=== PATIENT | male | born 1990 | race Caucasian/White ===

== ENCOUNTER → 2017-10-16 | Emergency (ER) | payer MEDICAID ==
[~2017-10-16] VITALS: Ht 167.6 cm; Wt 65.0 kg
[~2017-10-16] MED LIST: AMO250L PO; AMOX400S76 PEG; DULR RC; IBUP-2284 PO; LEVE100S21 PO; MUPI22OI30 TP; RANI15SY GT; acetaminophen 650mg rectal suppository RC STA; flagyl PEG; normal saline 1000ML IV soln IV ONE
[2017-10-16 18:47] LABS: INR 1.1 INR; PARTIAL THROMBOPLASTIN TIME 28 SECONDS (22-32)
[2017-10-16 18:48] LABS: BASOPHILS % (AUTO) 0 % (0-1); EOSINOPHILS # (AUTO) 0.5 X10'3 (0-0.9); EOSINOPHILS % (AUTO) 7.2 % (0-6); HEMATOCRIT 44.4 % (42.0-52.0); HEMOGLOBIN 15.5 g/dl (14.0-17.9); LYMPHOCYTES # (AUTO) 0.2 X10'3 (1.1-4.8); LYMPHOCYTES % (AUTO) 2.8 % (21-51); MEAN CORPUSCULAR HEMOGLOBIN 33.4 PG (27.0-31.0); MEAN CORPUSCULAR VOLUME 95.3 FL (78-98); MEAN PLATELET VOLUME 9.6 FL (7.4-10.4); MONOCYTES # (AUTO) 0.5 X10'3 (0-0.9); NEUTROPHILS # (AUTO) 6.4 X10'3 (1.8-7.7); PLATELET COUNT 181 X10'3 (140-440); RED BLOOD COUNT 4.65 X10'6 (4.70-6.10); RED CELL DISTRIBUTION WIDTH 12.8 % (11.5-14.5); WHITE BLOOD COUNT 7.6 X10'3 (4.5-11.0)
[2017-10-16 18:56] LABS: ALANINE AMINOTRANSFERASE 60 U/L (12-78); ALBUMIN 4.1 G/DL (3.4-5.0); ALBUMIN/GLOBULIN RATIO 1.1 (1.1-1.5); ALKALINE PHOSPHATASE 140 IU/L (46-116); ANION GAP 12 (8-16); ASPARTATE AMINO TRANSFERASE 40 U/L (10-37); BILIRUBIN,TOTAL 0.6 MG/DL (0.1-1.0); BLOOD UREA NITROGEN 15 MG/DL (7-18); BUN/CREATININE RATIO 25.4 (5.4-32.0); CALCIUM 9.2 MG/DL (8.5-10.1); CHLORIDE 105 MMOL/L (99-107); CREATININE 0.59 MG/DL (0.60-1.10); GLUCOSE 82 MG/DL (70-104); SODIUM 141 MMOL/L (135-145); TOTAL CARBON DIOXIDE 24.2 MMOL/L (24-32); TOTAL PROTEIN 7.8 G/DL (6.4-8.2); eGFR > 90 ML/MIN
[2017-10-16 21:47] VITALS: BP 113/69
== END | disposition home or self-care (01) ==
LOC: ER 17:39
DX: R50.9 Fever, unspecified (principal); Z93.1 Gastrostomy status; Z98.890 Other specified postprocedural states; Z79.899 Other long term (current) drug therapy; Z88.1 Allergy status to other antibiotic agents
CPT/HCPCS: 36415; 71045; 80053; 83605; 84145; 85025; 85610; 85730; 87040; 87502; 87503; 96360; 96361; 99285; A4353; J7030

== ENCOUNTER 2018-02-12 10:52 | Emergency (ER) | payer MEDICAID ==
[~2018-02-12] VITALS: Ht 160 cm; Wt 27.0 kg
[~2018-02-12 10:52] MED LIST changes: -AMO250L PO; -IBUP-2284 PO; +IBUP100O20 PO; -acetaminophen 650mg rectal suppository RC STA; -normal saline 1000ML IV soln IV ONE
[2018-02-12] MEDS ORDERED: normal saline 1000ML IV soln IVB ONE (11:15)
[2018-02-12] MEDS ORDERED: NORMAL SALINE IV STA (11:17)
[2018-02-12] MEDS ORDERED: LEVETIRACETAM IV STA (11:17)
[2018-02-12 11:22] LABS: BASOPHILS % (AUTO) 0.1 % (0-1); EOSINOPHILS # (AUTO) 0.4 X10'3 (0-0.9); EOSINOPHILS % (AUTO) 2.1 % (0-6); HEMATOCRIT 43.3 % (42.0-52.0); HEMOGLOBIN 14.7 g/dl (14.0-17.9); LYMPHOCYTES # (AUTO) 0.7 X10'3 (1.1-4.8); LYMPHOCYTES % (AUTO) 4.3 % (21-51); MEAN CORPUSCULAR HGB CONC 34.1 % (33.0-36.5); MEAN CORPUSCULAR VOLUME 96.8 FL (78-98); MEAN PLATELET VOLUME 9.6 FL (7.4-10.4); MONOCYTES # (AUTO) 0.8 X10'3 (0-0.9); MONOCYTES % (AUTO) 4.8 % (2-12); NEUTROPHILS # (AUTO) 15.1 X10'3 (1.8-7.7); NEUTROPHILS % (AUTO) 88.7 % (42-75); PLATELET COUNT 233 X10'3 (140-440); RED BLOOD COUNT 4.47 X10'6 (4.70-6.10); RED CELL DISTRIBUTION WIDTH 12.7 % (11.5-14.5); WHITE BLOOD COUNT 17.1 X10'3 (4.5-11.0)
[2018-02-12 11:33] LABS: INR 1.1 INR; PARTIAL THROMBOPLASTIN TIME 28 SECONDS (22-32); PROTHROMBIN TIME 11.3 SECONDS (9.0-12.0)
[2018-02-12 11:38] LABS: ALANINE AMINOTRANSFERASE 47 U/L (12-78); ALBUMIN/GLOBULIN RATIO 1.1 (1.1-1.5); ALKALINE PHOSPHATASE 144 IU/L (46-116); ANION GAP 19 (8-16); ASPARTATE AMINO TRANSFERASE 42 U/L (10-37); BILIRUBIN,TOTAL 0.4 MG/DL (0.1-1.0); BLOOD UREA NITROGEN 14 MG/DL (7-18); BUN/CREATININE RATIO 17.5 (5.4-32.0); CALCIUM 9.4 MG/DL (8.5-10.1); CHLORIDE 105 MMOL/L (99-107); GLUCOSE 158 MG/DL (70-104); MAGNESIUM 2.2 MG/DL (1.5-2.4); SODIUM 143 MMOL/L (135-145); TOTAL PROTEIN 7.8 G/DL (6.4-8.2); eGFR > 90 ML/MIN
[2018-02-12 11:40] LABS: POTASSIUM 4.1 MMOL/L (3.5-5.1)
[2018-02-12 12:17] LABS: CLARITY,URINE SLIGHTLY CLOUDY (Clear); COLOR,URINE YELLOW (Yellow); GLUCOSE, URINE NEGATIVE (Neg); KETONES,URINE NEGATIVE (Neg); LEUKOCYTE ESTERASE ,URINE NEGATIVE (Neg); NITRITES, URINE NEGATIVE (Neg); OCCULT BLOOD,URINE NEGATIVE (Neg); PH,URINE 5.5 (4.8-8.0); PROTEIN,URINE TRACE mg/dl (Neg); UA COLLECTION TYPE STRAIGHT CATH; UROBILINOGEN,URINE 0.2 E.U/dL (0.2-1.0)
[2018-02-12 12:24] LABS: MUCUS STRANDS MODERATE /LPF (Neg); SQUAMOUS EPITHELIAL CELL,UR MODERATE /LPF (FEW)
[2018-02-12 12:25] LABS: RBC,URINE 0-2 /HPF (0-2); WBC,URINE 0-4 /HPF (0-4)
[2018-02-12 12:26] LABS: AMORPHOUS URATES 2+; BACTERIA,URINE 1+ /HPF (Neg)
[2018-02-12] MEDS ORDERED: LEVO250T2 PO (12:50)
[2018-02-12] MEDS ORDERED: levoFLOXACIN-Levaquin 250mg/D5 50 ML IV ONE (12:50)
[2018-02-12] MEDS ORDERED: LEVO250S7 PEG (12:51)
[2018-02-12] MEDS ORDERED: ondansetron/PF 4mg/2ml inj IV ONE (13:25)
[2018-02-12 14:13] VITALS: BP 113/57
[2018-02-12] MEDS ORDERED: acetaminophen 325mg/10.15ml oral unit dose solution PO ONE (14:15)
== END 2018-02-12 14:30 | disposition home or self-care (01) ==
LOC: ER 10:52
DX: J18.9 Pneumonia, unspecified organism (principal); R56.9 Unspecified convulsions; R79.1 Abnormal coagulation profile; Z88.1 Allergy status to other antibiotic agents; Z79.899 Other long term (current) drug therapy
CPT/HCPCS: 36415; 70450; 71045; 80053; 81001; 83735; 84145; 85025; 85610; 85730; 96365; 96368; 96375; 99285; A4353; J1953; J1956; J2405; J7030

== ENCOUNTER 2018-07-13 06:26 | Inpatient (IN) | payer MEDICAID ==
[2018-07-13] VITALS (7 sets, daily range): BP systolic 103–157; BP diastolic 51–80
[~2018-07-13] VITALS: Ht 162.6 cm; Wt 29.6 kg
[~2018-07-13 06:26] MED LIST changes: +LEVO250S7 PEG
[2018-07-13] MEDS ORDERED: pantoprazole 40MG/NS 100ML BAG 100 ML IV ONE (06:50)
[2018-07-13] MEDS ORDERED: normal saline 1000ML IV soln IVB ONE (06:50)
[2018-07-13 07:37] LABS: BASOPHILS % (AUTO) 0.2 % (0-1); EOSINOPHILS % (AUTO) 0.2 % (0-6); HEMATOCRIT 42.8 % (42.0-52.0); HEMOGLOBIN 14.6 g/dl (14.0-17.9); LYMPHOCYTES # (AUTO) 0.7 X10'3 (1.1-4.8); LYMPHOCYTES % (AUTO) 5.6 % (21-51); MEAN CORPUSCULAR HEMOGLOBIN 32.9 PG (27.0-31.0); MEAN CORPUSCULAR HGB CONC 34.1 % (33.0-36.5); MEAN CORPUSCULAR VOLUME 96.5 FL (78-98); MEAN PLATELET VOLUME 9.8 FL (7.4-10.4); MONOCYTES # (AUTO) 0.4 X10'3 (0-0.9); MONOCYTES % (AUTO) 3.3 % (2-12); NEUTROPHILS # (AUTO) 11.8 X10'3 (1.8-7.7); NEUTROPHILS % (AUTO) 90.7 % (42-75); PLATELET COUNT 267 X10'3 (140-440); RED BLOOD COUNT 4.43 X10'6 (4.70-6.10); RED CELL DISTRIBUTION WIDTH 12.6 % (11.5-14.5)
[2018-07-13 07:53] LABS: ALANINE AMINOTRANSFERASE 28 U/L (12-78); ALBUMIN 3.8 G/DL (3.4-5.0); ALKALINE PHOSPHATASE 119 IU/L (46-116); ANION GAP 9 (8-16); ASPARTATE AMINO TRANSFERASE 25 U/L (10-37); BILIRUBIN,TOTAL 0.5 MG/DL (0.1-1.0); BLOOD UREA NITROGEN 28 MG/DL (7-18); BUN/CREATININE RATIO 57.1 (5.4-32.0); CHLORIDE 103 MMOL/L (99-107); CREATININE 0.49 MG/DL (0.60-1.10); GLUCOSE 99 MG/DL (70-104); POTASSIUM 4.5 MMOL/L (3.5-5.1); SODIUM 138 MMOL/L (135-145); TOTAL CARBON DIOXIDE 25.6 MMOL/L (24-32); TOTAL PROTEIN 7.7 G/DL (6.4-8.2); eGFR > 90 ML/MIN
[2018-07-13 07:56] LABS: INR 1.1 INR
[2018-07-13 08:23] LABS: CLARITY,URINE CLEAR (Clear); COLOR,URINE YELLOW (Yellow); GLUCOSE, URINE NEGATIVE (Neg); KETONES,URINE 15 mg/dl (Neg); LEUKOCYTE ESTERASE ,URINE NEGATIVE (Neg); NITRITES, URINE NEGATIVE (Neg); OCCULT BLOOD,URINE NEGATIVE (Neg); PH,URINE 7.5 (4.8-8.0); PROTEIN,URINE NEGATIVE (Neg); UROBILINOGEN,URINE 0.2 E.U/dL (0.2-1.0)
[2018-07-13 08:28] LABS: UA COLLECTION TYPE STRAIGHT CATH
[2018-07-13 08:30] LABS: OCCULT BLOOD STOOL POSITIVE (Neg)
[2018-07-13] MEDS ORDERED: LEVE100S21 CORPAK (08:56)
[2018-07-13] MEDS ORDERED: magnesium Cl slow-release 64mg tablet PO PRN (09:35)
[2018-07-13] MEDS ORDERED: acetaminophen 650mg rectal suppository RC PRN (09:35)
[2018-07-13] MEDS ORDERED: potassium Cl 20 mEq SR tablet PO PRN ×2 (09:35)
[2018-07-13] MEDS ORDERED: magnesium 1gm/100ml D5W IVPB 100 ML IV PRN (09:35)
[2018-07-13] MEDS ORDERED: morphine 2 MG/ML inj. syringe IV PRN ×2 (09:35)
[2018-07-13] MEDS ORDERED: magnesium hydroxide 30ml (MOM) UD suspension PO PRN (09:35)
[2018-07-13] MEDS ORDERED: magnesium 4gm in 100ml NS 100 ML IV PRN (09:35)
[2018-07-13] MEDS ORDERED: mag hydrox/Alum hydrox/simeth 30ml oral suspension PO PRN (09:35)
[2018-07-13] MEDS ORDERED: potassium Cl 40MEQ/NS 500ml 500 ML IV PRN ×2 (09:35)
[2018-07-13] MEDS ORDERED: ondansetron/PF 4mg/2ml inj IV PRN (09:35)
[2018-07-13] MEDS: dextrose 5%-1/2 normal saline 1,000 ML IV SCH ×2 (10:16→20:27)
[2018-07-13] MEDS: levetiracetam 100mg/ml oral solution 5ml UD cup GT SCH ×2 (10:18→21:00)
[2018-07-13] MEDS: pantoprazole 40MG/NS 100ML BAG 100 ML IV SCH ×3 (11:00→22:17)
[2018-07-13] MEDS ORDERED: MIDAZolam 5mg/5ml vial ONE (11:22)
[2018-07-13] MEDS ORDERED: fentaNYL/PF 50MCG/1 ML 2ML syringe ONE (11:22)
[2018-07-13] MEDS ORDERED: LIDOcaine Viscous 15ml cup ONE (11:22)
[2018-07-13 13:57] LABS: BASOPHILS % (AUTO) 0.2 % (0-1); EOSINOPHILS # (AUTO) 0.1 X10'3 (0-0.9); EOSINOPHILS % (AUTO) 1.3 % (0-6); HEMATOCRIT 34.8 % (42.0-52.0); HEMOGLOBIN 11.8 g/dl (14.0-17.9); LYMPHOCYTES % (AUTO) 20.1 % (21-51); MEAN CORPUSCULAR HEMOGLOBIN 32.9 PG (27.0-31.0); MEAN CORPUSCULAR HGB CONC 33.9 % (33.0-36.5); MEAN CORPUSCULAR VOLUME 97.2 FL (78-98); MEAN PLATELET VOLUME 9.2 FL (7.4-10.4); MONOCYTES # (AUTO) 0.6 X10'3 (0-0.9); MONOCYTES % (AUTO) 6.4 % (2-12); NEUTROPHILS # (AUTO) 7.3 X10'3 (1.8-7.7); PLATELET COUNT 229 X10'3 (140-440); RED BLOOD COUNT 3.58 X10'6 (4.70-6.10); RED CELL DISTRIBUTION WIDTH 12.8 % (11.5-14.5); WHITE BLOOD COUNT 10.1 X10'3 (4.5-11.0)
[2018-07-13 19:19] LABS: BASOPHILS % (AUTO) 0.4 % (0-1); EOSINOPHILS # (AUTO) 0.2 X10'3 (0-0.9); EOSINOPHILS % (AUTO) 1.7 % (0-6); HEMATOCRIT 31.8 % (42.0-52.0); HEMOGLOBIN 10.8 g/dl (14.0-17.9); LYMPHOCYTES # (AUTO) 2.2 X10'3 (1.1-4.8); LYMPHOCYTES % (AUTO) 25.5 % (21-51); MEAN CORPUSCULAR HGB CONC 33.8 % (33.0-36.5); MEAN CORPUSCULAR VOLUME 97.7 FL (78-98); MEAN PLATELET VOLUME 9.3 FL (7.4-10.4); MONOCYTES # (AUTO) 0.6 X10'3 (0-0.9); MONOCYTES % (AUTO) 6.8 % (2-12); NEUTROPHILS # (AUTO) 5.8 X10'3 (1.8-7.7); NEUTROPHILS % (AUTO) 65.6 % (42-75); PLATELET COUNT 200 X10'3 (140-440); RED BLOOD COUNT 3.25 X10'6 (4.70-6.10); RED CELL DISTRIBUTION WIDTH 12.4 % (11.5-14.5); WHITE BLOOD COUNT 8.8 X10'3 (4.5-11.0)
[2018-07-13] MEDS ORDERED: levetiracetam 100mg/ml oral solution 5ml UD cup GT SCH (20:00)
[2018-07-14] VITALS: BP 88/40
[2018-07-14] MEDS: pantoprazole 40MG/NS 100ML BAG 100 ML IV SCH ×3 (03:16→11:00)
[2018-07-14] MEDS: dextrose 5%-1/2 normal saline 1,000 ML IV SCH (06:44)
[2018-07-14 07:33] VITALS: BP 96/49
[2018-07-14 07:55] LABS: BASOPHILS % (AUTO) 0.3 % (0-1); EOSINOPHILS # (AUTO) 0.3 X10'3 (0-0.9); EOSINOPHILS % (AUTO) 4.8 % (0-6); HEMATOCRIT 34.8 % (42.0-52.0); HEMOGLOBIN 11.7 g/dl (14.0-17.9); MEAN CORPUSCULAR HEMOGLOBIN 32.8 PG (27.0-31.0); MEAN CORPUSCULAR HGB CONC 33.6 % (33.0-36.5); MEAN CORPUSCULAR VOLUME 97.8 FL (78-98); MEAN PLATELET VOLUME 10.1 FL (7.4-10.4); MONOCYTES # (AUTO) 0.4 X10'3 (0-0.9); MONOCYTES % (AUTO) 6.3 % (2-12); NEUTROPHILS # (AUTO) 3.8 X10'3 (1.8-7.7); NEUTROPHILS % (AUTO) 57.6 % (42-75); PLATELET COUNT 183 X10'3 (140-440); RED BLOOD COUNT 3.56 X10'6 (4.70-6.10); WHITE BLOOD COUNT 6.6 X10'3 (4.5-11.0)
[2018-07-14] MEDS ORDERED: K and/or MAG REPLACEMENT MC SCH (08:00)
[2018-07-14] MEDS: levetiracetam 100mg/ml oral solution 5ml UD cup GT SCH (08:15)
[2018-07-14 08:18] LABS: ANION GAP 6 (8-16); BLOOD UREA NITROGEN 6 MG/DL (7-18); BUN/CREATININE RATIO 14.6 (5.4-32.0); CALCIUM 8.8 MG/DL (8.5-10.1); CHLORIDE 110 MMOL/L (99-107); CREATININE 0.41 MG/DL (0.60-1.10); GLUCOSE 78 MG/DL (70-104); POTASSIUM 3.6 MMOL/L (3.5-5.1); PREALBUMIN 18.3 MG/DL (19-36); SODIUM 142 MMOL/L (135-145); TOTAL CARBON DIOXIDE 25.8 MMOL/L (24-32); eGFR > 90 ML/MIN
[2018-07-14] MEDS ORDERED: iohexol 300 MG/1 ML 50ml polymer ONE (10:41)
[2018-07-14] MEDS ORDERED: LIDOcaine 1% (10mg/ml) 2ml vial ONE (10:41)
[2018-07-14] MEDS ORDERED: LIDOcaine 1%/PF 5ML 10 MG/ML VIAL SQ ONE (10:45)
[2018-07-14 11:00] VITALS: BP 97/51
[2018-07-14] MEDS ORDERED: SUCR1ORA PO (12:49)
== END 2018-07-14 14:35 | disposition home or self-care (01) | DRG 241 ==
LOC: ER 06:26 → ED HOLD 08:36 → SUR 3N 13:36
PROVIDERS: ADMIT Internal Medicine; ATTEND Internal Medicine
PROC: 0DJ08ZZ Inspection of Upper Intestinal Tract, Via Natural or Artificial Opening Endoscopic (ICD-10-PCS; principal; 2018-07-13)
PROC: 0D20XUZ Change Feeding Device in Upper Intestinal Tract, External Approach (ICD-10-PCS; 2018-07-14)
DX: K29.01 Acute gastritis with bleeding (principal); D72.828 Other elevated white blood cell count; G40.909 Epilepsy, unspecified, not intractable, without status epilepticus; G80.9 Cerebral palsy, unspecified; K31.89 Other diseases of stomach and duodenum; K92.0 Hematemesis; Z74.01 Bed confinement status; Z88.1 Allergy status to other antibiotic agents; Z79.899 Other long term (current) drug therapy
CPT/HCPCS: 36415; 49450; 71045; 80048; 80053; 81003; 82272; 83735; 84134; 85025; 85610; 86885; 86900; 86901; 87070; 96361; 96374; 99152; 99285; A4310; A4620; B4088; C9113; G0378; J2250; J3010; J3490; J7030; Q9967

== ENCOUNTER 2018-09-19 10:32 | Emergency (ER) | payer MEDICAID ==
[~2018-09-19] VITALS: Ht 157.5 cm; Wt 55.0 kg
[~2018-09-19 10:32] MED LIST changes: -AMOX400S76 PEG; -IBUP100O20 PO; +LEVE100S21 CORPAK; -LEVE100S21 PO; -LEVO250S7 PEG; -MUPI22OI30 TP; +SUCR1ORA PO; -flagyl PEG
--- NOTE | 2018-09-19 10:56 | NUR ---
PATIENT TO RADIOLOGY,GRANDPARENT IN THE ROOM.
[2018-09-19] MEDS ORDERED: normal saline 1000ML IV soln IV ONE (11:25)
[2018-09-19] MEDS ORDERED: levoFLOXACIN-Levaquin 500mg/D5 100 ML IV ONE (11:25)
[2018-09-19 11:28] LABS: BASOPHILS # (AUTO) 0.1 X10'3 (0-0.2); BASOPHILS % (AUTO) 1.9 % (0-1); EOSINOPHILS # (AUTO) 0.2 X10'3 (0-0.9); EOSINOPHILS % (AUTO) 2.3 % (0-6); HEMATOCRIT 42.8 % (42.0-52.0); LYMPHOCYTES # (AUTO) 0.1 X10'3 (1.1-4.8); LYMPHOCYTES % (AUTO) 1.5 % (21-51); MEAN CORPUSCULAR HEMOGLOBIN 30.1 PG (27.0-31.0); MEAN CORPUSCULAR HGB CONC 32.7 % (33.0-36.5); MEAN CORPUSCULAR VOLUME 92.2 FL (78-98); MEAN PLATELET VOLUME 9.9 FL (7.4-10.4); MONOCYTES # (AUTO) 0.5 X10'3 (0-0.9); MONOCYTES % (AUTO) 7.1 % (2-12); NEUTROPHILS # (AUTO) 6.2 X10'3 (1.8-7.7); NEUTROPHILS % (AUTO) 87.2 % (42-75); PLATELET COUNT 217 X10'3 (140-440); RED BLOOD COUNT 4.64 X10'6 (4.70-6.10); RED CELL DISTRIBUTION WIDTH 13.3 % (11.5-14.5); WHITE BLOOD COUNT 7.1 X10'3 (4.5-11.0)
[2018-09-19 13:22] LABS: ALANINE AMINOTRANSFERASE 20 U/L (12-78); ALBUMIN 3.3 G/DL (3.4-5.0); ALBUMIN/GLOBULIN RATIO 0.9 (1.1-1.5); ALKALINE PHOSPHATASE 109 IU/L (46-116); ANION GAP 12 (8-16); ASPARTATE AMINO TRANSFERASE 28 U/L (10-37); BILIRUBIN,TOTAL 0.4 MG/DL (0.1-1.0); BLOOD UREA NITROGEN 11 MG/DL (7-18); BUN/CREATININE RATIO 19.6 (5.4-32.0); CALCIUM 8.4 MG/DL (8.5-10.1); CHLORIDE 106 MMOL/L (99-107); CREATININE 0.56 MG/DL (0.60-1.10); GLUCOSE 79 MG/DL (70-104); POTASSIUM 4.3 MMOL/L (3.5-5.1); SODIUM 140 MMOL/L (135-145); TOTAL CARBON DIOXIDE 21.7 MMOL/L (24-32); TOTAL PROTEIN 6.9 G/DL (6.4-8.2); eGFR > 90 ML/MIN
[2018-09-19 13:47] LABS: CLARITY,URINE SLIGHTLY CLOUDY (Clear); COLOR,URINE YELLOW (Yellow); GLUCOSE, URINE NEGATIVE (Neg); KETONES,URINE 15 mg/dl (Neg); LEUKOCYTE ESTERASE ,URINE NEGATIVE (Neg); NITRITES, URINE NEGATIVE (Neg); OCCULT BLOOD,URINE NEGATIVE (Neg); PH,URINE 6.5 (4.8-8.0); PROTEIN,URINE TRACE mg/dl (Neg); UROBILINOGEN,URINE 0.2 E.U/dL (0.2-1.0)
[2018-09-19 13:52] LABS: UA COLLECTION TYPE STRAIGHT CATH
[2018-09-19 13:57] LABS: BACTERIA,URINE FEW /HPF (Neg); HYALINE CASTS 0-3 /LPF (NEGATIVE); MUCUS STRANDS MODERATE /LPF (Neg); RBC,URINE 0-2 /HPF (0-2); SQUAMOUS EPITHELIAL CELL,UR FEW /LPF (FEW); TRANSITIONAL EPI CELLS,URINE FEW /HPF; WBC,URINE 0-4 /HPF (0-4)
[2018-09-19] MEDS ORDERED: ondansetron/PF 4mg/2ml inj IV ONE (14:15)
[2018-09-19 15:09] VITALS: BP 134/76
--- NOTE | 2018-09-19 17:21 | NUR ---
LAB CALLED WITH A POSTIVE FLU A. PROVIDER NOTIFIED
--- NOTE | 2018-09-19 17:50 | NUR ---
FAMILY CALLED AND NOTIFIED THAT PT WAS POSITIVE FOR FLU A. PT'S GRANDMOTHER INFORMED THAT [facility] WAS CALLED INTO HER PHARMACY AND THAT THEY NEED TO MAKE SURE THAT PT RECEIVES ALL MEDICATION AND TAKES THEM ORDERED AND TO F/U WITH DR QUIGLEY ON FRIDAY IF POSSIBLE. ADVISED TO RETURN TO ER SHOULD PT'S SYMPTOMS WORSEN BEFORE SEEING PMD.
== END 2018-09-19 15:44 | disposition home or self-care (01) ==
LOC: ER 10:32
DX: J20.9 Acute bronchitis, unspecified (principal); G80.8 Other cerebral palsy; Z98.890 Other specified postprocedural states; Z88.1 Allergy status to other antibiotic agents; Z79.899 Other long term (current) drug therapy; Z87.01 Personal history of pneumonia (recurrent)
CPT/HCPCS: 36415; 71046; 80053; 81001; 84145; 85025; 87040; 87502; 87503; 96365; 96375; 99284; J1956; J2405; J7030

== ENCOUNTER 2018-10-02 12:54 | Inpatient (IN) | payer MEDICAID ==
[~2018-10-02] VITALS: Ht 121.9 cm; Wt 45.5 kg
[2018-10-02] MEDS ORDERED: normal saline 1000ML IV soln IV ONE (13:10)
[2018-10-02 13:55] LABS: BASOPHILS % (AUTO) 0 % (0-1); EOSINOPHILS # (AUTO) 0.2 X10'3 (0-0.9); EOSINOPHILS % (AUTO) 1.6 % (0-6); HEMATOCRIT 38.5 % (42.0-52.0); HEMOGLOBIN 12.9 g/dl (14.0-17.9); LYMPHOCYTES # (AUTO) 0.5 X10'3 (1.1-4.8); LYMPHOCYTES % (AUTO) 3.8 % (21-51); MEAN CORPUSCULAR HEMOGLOBIN 30.9 PG (27.0-31.0); MEAN CORPUSCULAR HGB CONC 33.6 % (33.0-36.5); MEAN CORPUSCULAR VOLUME 91.8 FL (78-98); MEAN PLATELET VOLUME 9.2 FL (7.4-10.4); MONOCYTES # (AUTO) 0.5 X10'3 (0-0.9); MONOCYTES % (AUTO) 3.7 % (2-12); NEUTROPHILS # (AUTO) 12.5 X10'3 (1.8-7.7); NEUTROPHILS % (AUTO) 90.9 % (42-75); PLATELET COUNT 399 X10'3 (140-440); RED BLOOD COUNT 4.19 X10'6 (4.70-6.10); WHITE BLOOD COUNT 13.8 X10'3 (4.5-11.0)
[2018-10-02 14:12] LABS: INR 1.1 INR; PARTIAL THROMBOPLASTIN TIME 27 SECONDS (22-32); PROTHROMBIN TIME 11.4 SECONDS (9.0-12.0)
[2018-10-02 14:14] LABS: ALANINE AMINOTRANSFERASE 34 U/L (12-78); ALBUMIN 3.7 G/DL (3.4-5.0); ALKALINE PHOSPHATASE 107 IU/L (46-116); ANION GAP 14 (8-16); ASPARTATE AMINO TRANSFERASE 26 U/L (10-37); BILIRUBIN,TOTAL 0.4 MG/DL (0.1-1.0); BLOOD UREA NITROGEN 16 MG/DL (7-18); BUN/CREATININE RATIO 21.1 (5.4-32.0); CALCIUM 8.7 MG/DL (8.5-10.1); CHLORIDE 107 MMOL/L (99-107); CREATININE 0.76 MG/DL (0.60-1.10); GLUCOSE 118 MG/DL (70-104); MAGNESIUM 2.1 MG/DL (1.5-2.4); POTASSIUM 4.2 MMOL/L (3.5-5.1); SODIUM 143 MMOL/L (135-145); TOTAL CARBON DIOXIDE 21.7 MMOL/L (24-32); TOTAL PROTEIN 7.5 G/DL (6.4-8.2); eGFR > 90 ML/MIN
[2018-10-02 14:22] LABS: CLARITY,URINE SLIGHTLY CLOUDY (Clear); COLOR,URINE YELLOW (Yellow); GLUCOSE, URINE NEGATIVE (Neg); KETONES,URINE NEGATIVE (Neg); LEUKOCYTE ESTERASE ,URINE NEGATIVE (Neg); NITRITES, URINE NEGATIVE (Neg); OCCULT BLOOD,URINE TRACE-INTACT (Neg); PH,URINE 6.5 (4.8-8.0); PROTEIN,URINE 30 mg/dl (Neg); UROBILINOGEN,URINE 0.2 E.U/dL (0.2-1.0)
[2018-10-02 14:23] LABS: UA COLLECTION TYPE STRAIGHT CATH
[2018-10-02 14:42] LABS: MUCUS STRANDS MODERATE /LPF (Neg); SQUAMOUS EPITHELIAL CELL,UR FEW /LPF (FEW)
[2018-10-02 14:44] LABS: RBC,URINE 0-2 /HPF (0-2); TRANSITIONAL EPI CELLS,URINE FEW /HPF; WBC,URINE 0-4 /HPF (0-4)
[2018-10-02 14:45] LABS: BACTERIA,URINE FEW /HPF (Neg)
[2018-10-02] MEDS ORDERED: ondansetron/PF 4mg/2ml inj IV ONE (16:00)
--- NOTE | 2018-10-02 16:18 | NUR ---
ASSISTING RN WITH PT CARE, PT IS RESTING QUIETLY ON GURNEY, RESP EVEN AND UNLABORED, SKIN P/W/D, PER FAMILY PT IS BACK TO NORMAL MENTAL STATE, NONVERBAL,
[2018-10-02] MEDS ORDERED: normal saline 1000ML IV soln IVB ONE (16:20)
--- NOTE | 2018-10-02 16:23 | NUR ---
2ND LITER NS INFUSING
[2018-10-02] MEDS: ampicill/sulbac 1.5gm/NS 100ml 100 ML IV SCH (17:11)
[2018-10-02] MEDS ORDERED: fentaNYL/PF 50MCG/1 ML 2ML syringe IV ONE (17:25)
[2018-10-02] MEDS: normal saline 1000ml 1,000 ML IV SCH (17:41)
[2018-10-02] MEDS ORDERED: potassium Cl 20 mEq SR tablet PO PRN ×2 (17:45)
[2018-10-02] MEDS ORDERED: magnesium 2GM in 50ml NS 50 ML IV PRN (17:45)
[2018-10-02] MEDS ORDERED: potassium Cl 40MEQ/NS 500ml 500 ML IV PRN ×2 (17:45)
[2018-10-02] MEDS ORDERED: magnesium 4gm in 100ml NS 100 ML IV PRN (17:45)
[2018-10-02] MEDS ORDERED: bisacodyl 10mg suppository rectal RC PRN (17:45)
[2018-10-02] MEDS ORDERED: acetaminophen 650mg rectal suppository RC PRN (17:45)
[2018-10-02] MEDS ORDERED: magnesium Cl slow-release 64mg tablet PO PRN (17:45)
[2018-10-02] MEDS: heparin, porcine 5000 units/ml vial SQ SCH (20:00)
[2018-10-02 20:30] VITALS: BP 124/72
--- NOTE | 2018-10-02 20:30 | NUR ---
pt arrived to floor via gurney and was transferred to bed. VSS, pt and family oriented to room and call light. Addendum: 10/03/18 at 0523 by Clemente Cerda RN placed suction at bedside
[2018-10-02 22:00] VITALS: BP 123/68
--- NOTE | 2018-10-02 22:33 | NUR ---
paged Dr. Larkin PAGER ID: [phone] MESSAGE: Frandy Mckinney rm [phone]. none of pt home meds have been continued. pt really needs Keppra. please and thank you. Marga LOPEZ [phone]
[2018-10-03] MEDS: piperacillin/tazo 3.375gm/50ml 50 ML IV SCH ×3 (00:02→16:42)
[2018-10-03 02:00] VITALS: BP 126/74
--- NOTE | 2018-10-03 06:16 | NUR ---
Problems reprioritized. Patient report given, questions answered & plan of care reviewed with Olga LOPEZ.
[2018-10-03] MEDS: ampicill/sulbac 1.5gm/NS 100ml 100 ML IV SCH (06:22)
--- NOTE | 2018-10-03 06:35 | NUR ---
Patient in room PCU 3021. I have received report from JOHN KRAMER and had the opportunity to ask questions and assume patient care.
[2018-10-03 07:01] VITALS: BP 109/59
[2018-10-03] MEDS ORDERED: famotidine 20mg tablet CORPAK SCH (08:00)
[2018-10-03] MEDS: heparin, porcine 5000 units/ml vial SQ SCH ×2 (08:00→22:13)
[2018-10-03] MEDS: K and/or MAG REPLACEMENT MC SCH (08:00)
[2018-10-03] MEDS ORDERED: bisacodyl 10mg suppository rectal RC PRN (08:20)
[2018-10-03] MEDS: levetiracetam 100mg/ml oral solution 5ml UD cup CORPAK SCH ×2 (09:18→22:07)
[2018-10-03 09:24] LABS: ALBUMIN 3.1 G/DL (3.4-5.0); ANION GAP 15 (8-16); BLOOD UREA NITROGEN 9 MG/DL (7-18); BUN/CREATININE RATIO 20.5 (5.4-32.0); CALCIUM 8.1 MG/DL (8.5-10.1); CHLORIDE 107 MMOL/L (99-107); CREATININE 0.44 MG/DL (0.60-1.10); GLUCOSE 58 MG/DL (70-104); MAGNESIUM 1.7 MG/DL (1.5-2.4); POTASSIUM 3.6 MMOL/L (3.5-5.1); SODIUM 141 MMOL/L (135-145); TOTAL CARBON DIOXIDE 18.6 MMOL/L (24-32); eGFR > 90 ML/MIN
[2018-10-03] MEDS ORDERED: RANITIDINE 15 MG/ML CORPAK ONE (09:30)
[2018-10-03 09:39] LABS: BASOPHILS % (AUTO) 0.1 % (0-1); EOSINOPHILS # (AUTO) 0.1 X10'3 (0-0.9); HEMATOCRIT 36.3 % (42.0-52.0); HEMOGLOBIN 12.1 g/dl (14.0-17.9); LYMPHOCYTES # (AUTO) 1.4 X10'3 (1.1-4.8); LYMPHOCYTES % (AUTO) 17.6 % (21-51); MEAN CORPUSCULAR HEMOGLOBIN 30.7 PG (27.0-31.0); MEAN CORPUSCULAR HGB CONC 33.4 % (33.0-36.5); MEAN CORPUSCULAR VOLUME 91.7 FL (78-98); MEAN PLATELET VOLUME 9.6 FL (7.4-10.4); MONOCYTES # (AUTO) 0.6 X10'3 (0-0.9); MONOCYTES % (AUTO) 8.1 % (2-12); NEUTROPHILS # (AUTO) 5.7 X10'3 (1.8-7.7); NEUTROPHILS % (AUTO) 73.2 % (42-75); PLATELET COUNT 339 X10'3 (140-440); RED BLOOD COUNT 3.96 X10'6 (4.70-6.10); RED CELL DISTRIBUTION WIDTH 15.2 % (11.5-14.5); WHITE BLOOD COUNT 7.8 X10'3 (4.5-11.0)
[2018-10-03 11:00] VITALS: BP 104/53
[2018-10-03] MEDS: normal saline 1000ml 1,000 ML IV SCH (13:41)
[2018-10-03] MEDS ORDERED: ibuprofen 100 MG/5 ML oral susp GT PRN ×2 (15:50→16:20)
[2018-10-03 15:58] VITALS: BP 119/57
[2018-10-03] MEDS ORDERED: RANITIDINE 15 MG/ML CORPAK SCH (17:30)
--- NOTE | 2018-10-03 18:27 | NUR ---
Problems reprioritized. Patient report given, questions answered & plan of care reviewed with Dameon FENG
[2018-10-03 20:00] VITALS: BP 121/67
[2018-10-03] MEDS: RANITIDINE 15 MG/ML CORPAK SCH (21:00)
[2018-10-03 23:00] VITALS: BP 118/67
[2018-10-04] MEDS: piperacillin/tazo 3.375gm/50ml 50 ML IV SCH ×2 (00:23→08:06)
[2018-10-04 03:00] VITALS: BP 124/61
[2018-10-04 05:28] LABS: BASOPHILS % (AUTO) 0.6 % (0-1); EOSINOPHILS # (AUTO) 0.2 X10'3 (0-0.9); EOSINOPHILS % (AUTO) 2.5 % (0-6); HEMATOCRIT 35.2 % (42.0-52.0); HEMOGLOBIN 11.6 g/dl (14.0-17.9); LYMPHOCYTES % (AUTO) 25.1 % (21-51); MEAN CORPUSCULAR HEMOGLOBIN 30.1 PG (27.0-31.0); MEAN CORPUSCULAR HGB CONC 32.9 % (33.0-36.5); MEAN CORPUSCULAR VOLUME 91.5 FL (78-98); MEAN PLATELET VOLUME 9.3 FL (7.4-10.4); MONOCYTES # (AUTO) 0.9 X10'3 (0-0.9); MONOCYTES % (AUTO) 11.3 % (2-12); NEUTROPHILS # (AUTO) 4.7 X10'3 (1.8-7.7); NEUTROPHILS % (AUTO) 60.5 % (42-75); PLATELET COUNT 331 X10'3 (140-440); RED BLOOD COUNT 3.85 X10'6 (4.70-6.10); RED CELL DISTRIBUTION WIDTH 14.6 % (11.5-14.5); WHITE BLOOD COUNT 7.8 X10'3 (4.5-11.0)
[2018-10-04 05:50] LABS: ALBUMIN 2.7 G/DL (3.4-5.0); ANION GAP 11 (8-16); BLOOD UREA NITROGEN 11 MG/DL (7-18); CALCIUM 8.1 MG/DL (8.5-10.1); CHLORIDE 109 MMOL/L (99-107); GLUCOSE 76 MG/DL (70-104); MAGNESIUM 1.9 MG/DL (1.5-2.4); POTASSIUM 3.5 MMOL/L (3.5-5.1); SODIUM 145 MMOL/L (135-145); TOTAL CARBON DIOXIDE 25.4 MMOL/L (24-32); eGFR > 90 ML/MIN
--- NOTE | 2018-10-04 06:00 | NUR ---
Patient in room PCU 3012. I have received report from Donn LOPEZ and had the opportunity to ask questions and assume patient care.
--- NOTE | 2018-10-04 06:30 | NUR ---
Problems reprioritized. Patient report given, questions answered & plan of care reviewed with CAROLYNN LOPEZ.
[2018-10-04] MEDS: normal saline 1000ml 1,000 ML IV SCH (06:31)
[2018-10-04 07:00] VITALS: BP 107/64
[2018-10-04] MEDS: K and/or MAG REPLACEMENT MC SCH (08:00)
[2018-10-04] MEDS: heparin, porcine 5000 units/ml vial SQ SCH (08:00)
[2018-10-04] MEDS: levetiracetam 100mg/ml oral solution 5ml UD cup CORPAK SCH (08:08)
[2018-10-04] MEDS: RANITIDINE 15 MG/ML CORPAK SCH (08:51)
[2018-10-04 11:00] VITALS: BP 117/56
--- NOTE | 2018-10-04 14:27 | NUR ---
PAGER ID: [phone] MESSAGE: [phone]. I didn't have a chance to discuss plan with you about this patient. They are asking me about him being discharged today. Rakesh LOPEZ [phone] or [phone]
[2018-10-04] MEDS ORDERED: [UNRECOGNIZED DRUG - CODE] GT (14:34)
[2018-10-04] MEDS ORDERED: AMOX600S48 PO (14:34)
--- NOTE | 2018-10-04 15:30 | NUR ---
Pt's meds retrieved from the pharmacy and given to caregiver. PIV removed cannula intact. All discharge instructions were given and all follow up questions answered.
== END 2018-10-04 15:20 | disposition home or self-care (01) | DRG 720 ==
LOC: ER 12:55 → ED HOLD 17:41 → PCU 3S 20:00
PROVIDERS: ADMIT Internal Medicine; ATTEND Family Medicine
DX: A41.9 Sepsis, unspecified organism (principal); J69.0 Pneumonitis due to inhalation of food and vomit; E87.2 Acidosis; G40.909 Epilepsy, unspecified, not intractable, without status epilepticus; G80.9 Cerebral palsy, unspecified; K59.09 Other constipation; Z66 Do not resuscitate; Z74.01 Bed confinement status; Z88.1 Allergy status to other antibiotic agents; Z79.899 Other long term (current) drug therapy; Z93.1 Gastrostomy status
CPT/HCPCS: 36415; 71045; 74176; 80048; 80053; 81001; 83605; 83735; 84145; 85025; 85610; 85730; 87040; 87070; 93005; 96365; 96375; 99285; G0378; J0295; J1644; J2405; J2543; J3010; J7030

== ENCOUNTER 2018-12-14 07:18 | Emergency (ER) | payer MEDICAID ==
[~2018-12-14] VITALS: Ht 137.2 cm; Wt 30.0 kg
[~2018-12-14 07:18] MED LIST changes: -SUCR1ORA PO; +[UNRECOGNIZED DRUG - CODE] GT
[2018-12-14] MEDS ORDERED: normal saline 1000ML IV soln IVB ONE (07:50)
[2018-12-14 09:09] LABS: BASOPHILS % (AUTO) 0.3 % (0-1); EOSINOPHILS % (AUTO) 0.2 % (0-6); HEMATOCRIT 43.6 % (42.0-52.0); HEMOGLOBIN 14.7 g/dl (14.0-17.9); LYMPHOCYTES # (AUTO) 0.5 X10'3 (1.1-4.8); LYMPHOCYTES % (AUTO) 5.2 % (21-51); MEAN CORPUSCULAR HEMOGLOBIN 31.3 PG (27.0-31.0); MEAN CORPUSCULAR HGB CONC 33.7 g/dL (33.0-36.5); MEAN CORPUSCULAR VOLUME 92.8 FL (78-98); MEAN PLATELET VOLUME 9.4 FL (7.4-10.4); MONOCYTES # (AUTO) 0.5 X10'3 (0-0.9); MONOCYTES % (AUTO) 5.6 % (2-12); NEUTROPHILS # (AUTO) 8.6 X10'3 (1.8-7.7); NEUTROPHILS % (AUTO) 88.7 % (42-75); PLATELET COUNT 227 X10'3 (140-440); RED CELL DISTRIBUTION WIDTH 15.4 % (11.5-14.5); WHITE BLOOD COUNT 9.8 X10'3 (4.5-11.0)
[2018-12-14 09:23] LABS: ALANINE AMINOTRANSFERASE 73 U/L (12-78); ALBUMIN 3.8 G/DL (3.4-5.0); ALKALINE PHOSPHATASE 128 IU/L (46-116); ANION GAP 11 (8-16); ASPARTATE AMINO TRANSFERASE 59 U/L (10-37); BILIRUBIN,TOTAL 0.3 MG/DL (0.1-1.0); BLOOD UREA NITROGEN 15 MG/DL (7-18); BUN/CREATININE RATIO 20.8 (5.4-32.0); CALCIUM 9.4 MG/DL (8.5-10.1); CHLORIDE 104 MMOL/L (99-107); CREATININE 0.72 MG/DL (0.60-1.10); GLUCOSE 122 MG/DL (70-104); POTASSIUM 3.9 MMOL/L (3.5-5.1); SODIUM 137 MMOL/L (135-145); TOTAL CARBON DIOXIDE 21.8 MMOL/L (24-32); TOTAL PROTEIN 7.7 G/DL (6.4-8.2); eGFR > 90 ML/MIN
[2018-12-14 10:33] VITALS: BP 91/41
== END 2018-12-14 11:49 | disposition home or self-care (01) ==
LOC: ER 07:19
DX: G40.909 Epilepsy, unspecified, not intractable, without status epilepticus (principal); G80.8 Other cerebral palsy; Z98.890 Other specified postprocedural states; Z88.1 Allergy status to other antibiotic agents; Z79.899 Other long term (current) drug therapy
CPT/HCPCS: 36415; 71045; 80053; 82948; 85025; 99284; J7030

== ENCOUNTER 2019-01-19 16:57 | Emergency (ER) | payer MEDICAID ==
[~2019-01-19] VITALS: Ht 152.4 cm; Wt 47.3 kg
[2019-01-19 18:19] LABS: BASOPHILS % (AUTO) 0.3 % (0-1); EOSINOPHILS # (AUTO) 0.3 X10'3 (0-0.9); EOSINOPHILS % (AUTO) 2.3 % (0-6); HEMATOCRIT 42.2 % (42.0-52.0); HEMOGLOBIN 14.3 g/dl (14.0-17.9); LYMPHOCYTES # (AUTO) 0.8 X10'3 (1.1-4.8); LYMPHOCYTES % (AUTO) 6.6 % (21-51); MEAN CORPUSCULAR HEMOGLOBIN 31.7 PG (27.0-31.0); MEAN CORPUSCULAR HGB CONC 33.7 g/dL (33.0-36.5); MEAN PLATELET VOLUME 9.7 FL (7.4-10.4); MONOCYTES # (AUTO) 0.8 X10'3 (0-0.9); MONOCYTES % (AUTO) 6.6 % (2-12); NEUTROPHILS # (AUTO) 10.8 X10'3 (1.8-7.7); NEUTROPHILS % (AUTO) 84.2 % (42-75); PLATELET COUNT 251 X10'3 (140-440); RED BLOOD COUNT 4.49 X10'6 (4.70-6.10); RED CELL DISTRIBUTION WIDTH 13.5 % (11.5-14.5); WHITE BLOOD COUNT 12.8 X10'3 (4.5-11.0)
[2019-01-19 18:28] LABS: ALANINE AMINOTRANSFERASE 70 U/L (12-78); ALBUMIN 3.7 G/DL (3.4-5.0); ALKALINE PHOSPHATASE 130 IU/L (46-116); ANION GAP 7 (8-16); ASPARTATE AMINO TRANSFERASE 42 U/L (10-37); BILIRUBIN,TOTAL 0.4 MG/DL (0.1-1.0); BLOOD UREA NITROGEN 13 MG/DL (7-18); BUN/CREATININE RATIO 24.5 (5.4-32.0); CALCIUM 9.5 MG/DL (8.5-10.1); CHLORIDE 105 MMOL/L (99-107); CREATININE 0.53 MG/DL (0.60-1.10); GLUCOSE 99 MG/DL (70-104); POTASSIUM 4.1 MMOL/L (3.5-5.1); SODIUM 138 MMOL/L (135-145); TOTAL CARBON DIOXIDE 26.3 MMOL/L (24-32); TOTAL PROTEIN 7.5 G/DL (6.4-8.2); eGFR > 90 ML/MIN
--- NOTE | 2019-01-19 18:35 | NUR ---
Patient supine in bed and in no distress.
[2019-01-19] MEDS ORDERED: normal saline 1000ml 1,000 ML IV ONE (18:45)
[2019-01-19] MEDS ORDERED: ondansetron/PF 4mg/2ml inj IV ONE (18:45)
[2019-01-19 20:09] VITALS: BP 123/61
== END 2019-01-19 20:15 | disposition home or self-care (01) ==
LOC: ER 16:58
DX: G40.909 Epilepsy, unspecified, not intractable, without status epilepticus (principal); G80.9 Cerebral palsy, unspecified; Z93.1 Gastrostomy status; Z98.890 Other specified postprocedural states; Z88.1 Allergy status to other antibiotic agents; Z79.899 Other long term (current) drug therapy
CPT/HCPCS: 36415; 71045; 80053; 83605; 84145; 85025; 87040; 96374; 99284; J2405; J7030

== ENCOUNTER 2020-11-21 03:26 | Emergency (ER) | payer MEDICAID ==
[~2020-11-21] VITALS: Ht 147.3 cm; Wt 38.6 kg
--- NOTE | 2020-11-21 03:38 | NUR ---
Pt's grandmother, Michelle, at bedside. Dr. Juares at bedside.
[2020-11-21] MEDS ORDERED: LORazepam 2 mg/ml vial IV ONE (03:45)
--- NOTE | 2020-11-21 04:15 | NUR ---
Pt with bp 92/55, otherwise vss. straight cathed for urine, pts diaper removed and was saturated with strong smelling urine. Labs drawn. Seizure pads placed. Ativan 1 mg iv given
[2020-11-21 04:19] LABS: BASOPHILS % (AUTO) 0.3 % (0-1); EOSINOPHILS # (AUTO) 0.2 X10'3 (0-0.9); EOSINOPHILS % (AUTO) 1.7 % (0-6); HEMATOCRIT 44.3 % (42.0-52.0); HEMOGLOBIN 14.9 g/dl (14.0-17.9); LYMPHOCYTES # (AUTO) 0.8 X10'3 (1.1-4.8); LYMPHOCYTES % (AUTO) 6.2 % (21-51); MEAN CORPUSCULAR HEMOGLOBIN 33.6 PG (27.0-31.0); MEAN CORPUSCULAR HGB CONC 33.6 g/dL (33.0-36.5); MEAN CORPUSCULAR VOLUME 99.9 FL (78-98); MEAN PLATELET VOLUME 9.1 FL (7.4-10.4); MONOCYTES # (AUTO) 0.8 X10'3 (0-0.9); MONOCYTES % (AUTO) 6.4 % (2-12); NEUTROPHILS # (AUTO) 11.3 X10'3 (1.8-7.7); NEUTROPHILS % (AUTO) 85.4 % (42-75); PLATELET COUNT 236 X10'3 (140-440); RED BLOOD COUNT 4.43 X10'6 (4.70-6.10); RED CELL DISTRIBUTION WIDTH 12.8 % (11.5-14.5); WHITE BLOOD COUNT 13.2 X10'3 (4.5-11.0)
[2020-11-21 04:34] LABS: ALANINE AMINOTRANSFERASE 55 U/L (12-78); ALBUMIN 3.7 G/DL (3.4-5.0); ALBUMIN/GLOBULIN RATIO 0.9 (1.1-1.5); ALKALINE PHOSPHATASE 129 IU/L (46-116); ANION GAP 14 (8-16); ASPARTATE AMINO TRANSFERASE 34 U/L (10-37); BILIRUBIN,TOTAL 0.3 MG/DL (0.1-1.0); BLOOD UREA NITROGEN 15 MG/DL (7-18); BUN/CREATININE RATIO 20.5 (5.4-32.0); CALCIUM 9.4 MG/DL (8.5-10.1); CHLORIDE 105 MMOL/L (99-107); CREATININE 0.73 MG/DL (0.60-1.10); GLUCOSE 131 MG/DL (70-104); POTASSIUM 3.5 MMOL/L (3.5-5.1); SODIUM 141 MMOL/L (135-145); TOTAL CARBON DIOXIDE 22.5 MMOL/L (24-32); TOTAL PROTEIN 7.6 G/DL (6.4-8.2); eGFR > 90 ML/MIN
[2020-11-21 04:49] LABS: CLARITY,URINE SLIGHTLY CLOUDY (Clear); COLOR,URINE YELLOW (Yellow); GLUCOSE, URINE NEGATIVE (Neg); KETONES,URINE NEGATIVE (Neg); LEUKOCYTE ESTERASE ,URINE NEGATIVE (Neg); NITRITES, URINE NEGATIVE (Neg); OCCULT BLOOD,URINE NEGATIVE (Neg); PROTEIN,URINE 30 mg/dl (Neg); UROBILINOGEN,URINE 0.2 E.U/dL (0.2-1.0)
[2020-11-21 05:15] LABS: UA COLLECTION TYPE STRAIGHT CATH
[2020-11-21 05:16] LABS: AMORPHOUS PHOSPHATES 3+; BACTERIA,URINE FEW /HPF (Neg); MUCUS STRANDS FEW /LPF (Neg); RBC,URINE NONE SEEN /HPF (0-2); SQUAMOUS EPITHELIAL CELL,UR FEW /LPF (FEW); WBC,URINE 0-4 /HPF (0-4)
[2020-11-21 05:27] VITALS: BP 99/60
== END 2020-11-21 08:00 | disposition home or self-care (01) ==
LOC: ER 03:26
DX: R56.9 Unspecified convulsions (principal); G80.0 Spastic quadriplegic cerebral palsy; Z86.69 Personal history of other diseases of the nervous system and sense organs; Z87.01 Personal history of pneumonia (recurrent); Z98.890 Other specified postprocedural states; Z88.1 Allergy status to other antibiotic agents; Z79.899 Other long term (current) drug therapy
CPT/HCPCS: 36415; 71045; 80053; 81001; 85025; 96374; 99284; J2060

== ENCOUNTER 2022-01-28 11:50 | Emergency (ER) | payer MEDICAID ==
[~2022-01-28] VITALS: Ht 157.5 cm; Wt 50.0 kg
[~2022-01-28 11:50] MED LIST changes: +[UNRECOGNIZED DRUG - CODE] GT; -[UNRECOGNIZED DRUG - CODE] GT
[2022-01-28 13:46] VITALS: BP 99/62
== END 2022-01-28 19:09 | disposition home or self-care (01) ==
LOC: ER 11:50
DX: K94.23 Gastrostomy malfunction (principal); Z86.69 Personal history of other diseases of the nervous system and sense organs; Z87.01 Personal history of pneumonia (recurrent); Z98.890 Other specified postprocedural states; Z88.1 Allergy status to other antibiotic agents; Z79.899 Other long term (current) drug therapy
CPT/HCPCS: 99283

== ENCOUNTER 2022-02-13 16:47 | Emergency (ER) | payer MEDICAID ==
[~2022-02-13] VITALS: Ht 157.5 cm; Wt 35.0 kg
[2022-02-13 17:57] LABS: BASOPHILS % (AUTO) 0.1 % (0-1); EOSINOPHILS % (AUTO) 0 % (0-6); HEMATOCRIT 44.1 % (42.0-52.0); HEMOGLOBIN 15.1 g/dl (14.0-17.9); LYMPHOCYTES # (AUTO) 0.4 X10'3 (1.1-4.8); LYMPHOCYTES % (AUTO) 3.3 % (21-51); MEAN CORPUSCULAR HEMOGLOBIN 33.9 PG (27.0-31.0); MEAN CORPUSCULAR HGB CONC 34.3 g/dL (33.0-36.5); MEAN PLATELET VOLUME 9.7 FL (7.4-10.4); MONOCYTES # (AUTO) 0.5 X10'3 (0-0.9); MONOCYTES % (AUTO) 4.2 % (2-12); NEUTROPHILS # (AUTO) 11.7 X10'3 (1.8-7.7); NEUTROPHILS % (AUTO) 92.4 % (42-75); PLATELET COUNT 216 X10'3 (140-440); RED BLOOD COUNT 4.45 X10'6 (4.70-6.10); RED CELL DISTRIBUTION WIDTH 12.8 % (11.5-14.5); WHITE BLOOD COUNT 12.7 X10'3 (4.5-11.0)
[2022-02-13 18:05] LABS: ALANINE AMINOTRANSFERASE 27 U/L (12-78); ALBUMIN 3.6 G/DL (3.4-5.0); ALBUMIN/GLOBULIN RATIO 0.9 (1.1-1.5); ALKALINE PHOSPHATASE 115 IU/L (46-116); ANION GAP 11 (8-16); ASPARTATE AMINO TRANSFERASE 31 U/L (10-37); BILIRUBIN,TOTAL 0.7 MG/DL (0.1-1.0); BLOOD UREA NITROGEN 15 MG/DL (7-18); BUN/CREATININE RATIO 26.8 (5.4-32.0); CALCIUM 8.8 MG/DL (8.5-10.1); CHLORIDE 104 MMOL/L (99-107); CREATININE 0.56 MG/DL (0.60-1.10); GLUCOSE 120 MG/DL (70-104); LIPASE < 50 U/L (73-393); POTASSIUM 3.6 MMOL/L (3.5-5.1); SODIUM 140 MMOL/L (135-145); TOTAL CARBON DIOXIDE 25.3 MMOL/L (24-32); TOTAL PROTEIN 7.4 G/DL (6.4-8.2); eGFR > 90 ML/MIN
[2022-02-13] MEDS ORDERED: normal saline 1000ML IV soln IVB ONE ×2 (18:35→20:10)
[2022-02-13] MEDS ORDERED: ondansetron/PF 4mg/2ml inj IV ONE (18:35)
[2022-02-13] MEDS ORDERED: clindamycin 600mg/D5W 50ml 50 ML IV ONE (20:50)
--- NOTE | 2022-02-13 20:56 | NUR ---
ATTEMPTED TO STRAIGHT CATH PT, NO URINE OUTPUT. WILL ATTEMPT AGAIN IN 30 MINUTES.
[2022-02-13] MEDS ORDERED: CLIN75SO7 PO (21:35)
[2022-02-13] MEDS ORDERED: ONDA8TAB13 PO (21:50)
[2022-02-13 22:53] VITALS: BP 80/49
== END 2022-02-13 23:15 | disposition home or self-care (01) ==
LOC: ER 16:47
DX: R11.2 Nausea with vomiting, unspecified (principal); E86.0 Dehydration; M88.1 Osteitis deformans of vertebrae; Z90.49 Acquired absence of other specified parts of digestive tract; Z79.899 Other long term (current) drug therapy
CPT/HCPCS: 36415; 71045; 74176; 80053; 83605; 83690; 84145; 85025; 87040; 96365; 96375; 99285; C1758; J2405; J3490; J7030

== ENCOUNTER 2024-02-19 12:58 | Inpatient (IN) | payer MEDICAID ==
[~2024-02-19] VITALS: Ht 121.9 cm; Wt 30.9 kg
[~2024-02-19 12:58] MED LIST changes: +CLIN75SO7 PO; +ONDA8TAB13 PO
[2024-02-19] MEDS: normal saline 1000ML IV soln IVB ONE ×3 (13:30→13:56)
[2024-02-19] MEDS: meropenem inj 500 MG in normal saline 100ml IV soln 100 ML IV STA (15:15)
[2024-02-19 16:07] LABS: BASOPHILS % (AUTO) 0.1 % (0-1); EOSINOPHILS % (AUTO) 0.1 % (0-6); HEMATOCRIT 34.5 % (42.0-52.0); HEMOGLOBIN 11.2 g/dl (14.0-17.9); LYMPHOCYTES # (AUTO) 0.8 X10'3 (1.1-4.8); LYMPHOCYTES % (AUTO) 5.8 % (21-51); MEAN CORPUSCULAR HEMOGLOBIN 32.1 PG (27.0-31.0); MEAN CORPUSCULAR HGB CONC 32.4 g/dL (33.0-36.5); MEAN PLATELET VOLUME 7.9 FL (7.4-10.4); MONOCYTES % (AUTO) 7.3 % (2-12); NEUTROPHILS # (AUTO) 12.4 X10'3 (1.8-7.7); NEUTROPHILS % (AUTO) 86.7 % (42-75); PLATELET COUNT 495 X10'3 (140-440); RED BLOOD COUNT 3.48 X10'6 (4.70-6.10); RED CELL DISTRIBUTION WIDTH 12.7 % (11.5-14.5); WHITE BLOOD COUNT 14.3 X10'3 (4.5-11.0)
[2024-02-19 16:09] LABS: ALBUMIN 2.2 G/DL (3.4-5.0); ANION GAP 9 (8-16); BLOOD UREA NITROGEN 8 MG/DL (7-18); BUN/CREATININE RATIO 21.1 (10.0-20.0); CHLORIDE 103 MMOL/L (99-107); CREATININE 0.38 MG/DL (0.60-1.10); GLUCOSE 81 MG/DL (70-104); POTASSIUM 4.1 MMOL/L (3.5-5.1); SODIUM 137 MMOL/L (135-145); TOTAL CARBON DIOXIDE 25.3 MMOL/L (24-32); eCRCL 72 ML/MIN; eGFR > 90 ML/MIN
[2024-02-19] MEDS ORDERED: acetaminophen 325mg tablet PO PRN (16:45)
[2024-02-19] MEDS ORDERED: mag hydrox/Alum hydrox/simeth 30ml oral suspension PO PRN (16:45)
[2024-02-19] MEDS ORDERED: morphine 2 MG/ML inj. syringe IV PRN (16:45)
[2024-02-19] MEDS ORDERED: magnesium hydroxide 30ml (MOM) UD suspension PO PRN (16:45)
[2024-02-19] MEDS: dextrose 5%-1/2 normal saline 1,000 ML IV SCH (17:12)
[2024-02-19] MEDS ORDERED: FAMO40SU3 PO (17:29)
[2024-02-19] MEDS ORDERED: LEVE100S PEG (17:29)
[2024-02-19] MEDS ORDERED: NUTR250L26 PEG (17:29)
[2024-02-19 17:52] LABS: PRO BRAIN NATRIURETIC PEPTIDE 275 PG/ML (0-125)
[2024-02-19 19:00] VITALS: BP 119/61; PULSE 95; RESP 20; TEMP 99.3; O2SAT 99
[2024-02-19 20:00] VITALS: RESP 25; O2SAT 95
[2024-02-19] MEDS ORDERED: docusate sod 100mg capsule PO SCH (20:00)
[2024-02-19] MEDS: levetiracetam 100mg/ml oral solution 5ml UD cup PEG SCH (21:33)
[2024-02-19] MEDS: docusate sodium 100mg/10ml UD cup PO SCH (21:33)
[2024-02-19] MEDS: heparin, porcine 5000 units/ml vial SQ SCH (21:34)
[2024-02-19] MEDS: famotidine 20MG/2.5ML oral suspension PO SCH (21:38)
[2024-02-19] MEDS: linezolid 600mg/300ml PREMIX 300 ML IV SCH (21:45)
[2024-02-19 22:00] VITALS: BP 105/64; PULSE 94; RESP 25; TEMP 99.5; O2SAT 95
[2024-02-20] MEDS: morphine 2 MG/ML inj. syringe IV PRN (00:04)
[2024-02-20] MEDS: ondansetron/PF 4mg/2ml inj IV PRN (00:31)
[2024-02-20] MEDS: piperacillin/tazo 4.5gm/100ml 100 ML IV SCH (01:00)
[2024-02-20 07:56] LABS: BASOPHILS % (AUTO) 0.1 % (0-1); EOSINOPHILS % (AUTO) 0 % (0-6); HEMATOCRIT 28.8 % (42.0-52.0); HEMOGLOBIN 9.7 g/dl (14.0-17.9); LYMPHOCYTES # (AUTO) 0.6 X10'3 (1.1-4.8); LYMPHOCYTES % (AUTO) 4.3 % (21-51); MEAN CORPUSCULAR HEMOGLOBIN 32.8 PG (27.0-31.0); MEAN CORPUSCULAR HGB CONC 33.7 g/dL (33.0-36.5); MEAN CORPUSCULAR VOLUME 97.3 FL (78-98); MEAN PLATELET VOLUME 7.7 FL (7.4-10.4); MONOCYTES # (AUTO) 0.8 X10'3 (0-0.9); MONOCYTES % (AUTO) 5.2 % (2-12); NEUTROPHILS # (AUTO) 13.4 X10'3 (1.8-7.7); NEUTROPHILS % (AUTO) 90.4 % (42-75); PLATELET COUNT 447 X10'3 (140-440); RED BLOOD COUNT 2.96 X10'6 (4.70-6.10); RED CELL DISTRIBUTION WIDTH 12.8 % (11.5-14.5); WHITE BLOOD COUNT 14.9 X10'3 (4.5-11.0)
[2024-02-20 08:00] VITALS: RESP 25; O2SAT 95
[2024-02-20] MEDS: bisacodyl 10mg suppository rectal RC STA (10:44)
[2024-02-20 11:29] LABS: ALBUMIN 1.9 G/DL (3.4-5.0); ANION GAP 7 (8-16); BLOOD UREA NITROGEN 5 MG/DL (7-18); BUN/CREATININE RATIO 14.7 (10.0-20.0); CHLORIDE 100 MMOL/L (99-107); CREATININE 0.34 MG/DL (0.60-1.10); GLUCOSE 134 MG/DL (70-104); POTASSIUM 3.6 MMOL/L (3.5-5.1); SODIUM 132 MMOL/L (135-145); TOTAL CARBON DIOXIDE 25.3 MMOL/L (24-32); eCRCL 80 ML/MIN; eGFR > 90 ML/MIN
[2024-02-20 18:00] VITALS: BP 118/70; PULSE 68; RESP 14; TEMP 97.6; O2SAT 99
[2024-02-20 22:00] VITALS: BP 94/55; PULSE 83; RESP 18; TEMP 97.2; O2SAT 97
[2024-02-21 06:00] VITALS: BP 108/57; PULSE 83; RESP 18; TEMP 97.9; O2SAT 99
[2024-02-21 08:00] VITALS: RESP 16
[2024-02-21 09:45] LABS: HEMATOCRIT 33.4 % (42.0-52.0); HEMOGLOBIN 11.4 g/dl (14.0-17.9); MEAN CORPUSCULAR HEMOGLOBIN 33.4 PG (27.0-31.0); MEAN CORPUSCULAR HGB CONC 34.2 g/dL (33.0-36.5); MEAN CORPUSCULAR VOLUME 97.5 FL (78-98); MEAN PLATELET VOLUME 7.6 FL (7.4-10.4); PLATELET COUNT 489 X10'3 (140-440); RED BLOOD COUNT 3.42 X10'6 (4.70-6.10); RED CELL DISTRIBUTION WIDTH 12.9 % (11.5-14.5); WHITE BLOOD COUNT 14.8 X10'3 (4.5-11.0)
[2024-02-21 09:59] LABS: ALBUMIN 1.9 G/DL (3.4-5.0); ANION GAP 8 (8-16); BLOOD UREA NITROGEN 2 MG/DL (7-18); BUN/CREATININE RATIO 4.8 (10.0-20.0); CALCIUM 8.1 MG/DL (8.5-10.1); CHLORIDE 102 MMOL/L (99-107); CREATININE 0.42 MG/DL (0.60-1.10); GLUCOSE 108 MG/DL (70-104); SODIUM 136 MMOL/L (135-145); TOTAL CARBON DIOXIDE 26.1 MMOL/L (24-32); eCRCL 80 ML/MIN; eGFR > 90 ML/MIN
[2024-02-21 10:00] VITALS: BP 105/60; PULSE 77; RESP 16; TEMP 98.2; O2SAT 99
[2024-02-21 10:04] LABS: PLATELET ESTIMATE INCREASED; TOTAL CELLS COUNTED 100
[2024-02-21] MEDS ORDERED: potassium Cl 40MEQ/1/2NS 520ml 520 ML IV PRN (10:50)
[2024-02-21] MEDS ORDERED: magnesium 4gm in 100ml NS 100 ML IV PRN (10:50)
[2024-02-21] MEDS ORDERED: magnesium Cl slow-release 64mg tablet PO PRN (10:50)
[2024-02-21] MEDS ORDERED: potassium Cl 20 mEq SR tablet PO PRN (10:50)
[2024-02-21] MEDS ORDERED: magnesium 2GM in 50ml NS 50 ML IV PRN (10:50)
[2024-02-21] MEDS: potassium Cl 20 mEq SR tablet PO PRN (12:01)
[2024-02-21] MEDS ORDERED: BISA10SU60 RC (12:20)
[2024-02-21] MEDS ORDERED: AMOX-580 PO (12:20)
[2024-02-21] MEDS ORDERED: POTASSIUM CHLORIDE 20 MEQ/15 ML oral solution NG PRN (12:21)
[2024-02-21] MEDS ORDERED: mag hydrox/Alum hydrox/simeth 30ml oral suspension NG PRN (12:22)
[2024-02-21] MEDS ORDERED: acetaminophen 325mg tablet NG PRN (12:22)
[2024-02-21] MEDS ORDERED: docusate sodium 100mg/10ml UD cup NG SCH (12:22)
[2024-02-21] MEDS ORDERED: famotidine 20MG/2.5ML oral suspension NG SCH (12:23)
[2024-02-21] MEDS ORDERED: magnesium hydroxide 30ml (MOM) UD suspension NG PRN (12:23)
[2024-02-21] MEDS: POTASSIUM CHLORIDE 20 MEQ/15 ML oral solution NG PRN (13:08)
[2024-02-21] MEDS ORDERED: K and/or MAG REPLACEMENT MC SCH (20:00)
== END 2024-02-21 17:09 | disposition home or self-care (01) | DRG 139 ==
LOC: ER 12:59 → ED HOLD 16:51 → ORTHO 4S 19:12
PROVIDERS: ADMIT Internal Medicine; ATTEND Internal Medicine
PROC: BW251ZZ Computerized Tomography (CT Scan) of Chest, Abdomen and Pelvis using Low Osmolar Contrast (ICD-10-PCS; principal; 2024-02-19)
DX: J15.9 Unspecified bacterial pneumonia (principal); J85.1 Abscess of lung with pneumonia; G92.8 Other toxic encephalopathy; G80.9 Cerebral palsy, unspecified; G40.909 Epilepsy, unspecified, not intractable, without status epilepticus; K52.89 Other specified noninfective gastroenteritis and colitis; J98.4 Other disorders of lung; Z66 Do not resuscitate; K59.00 Constipation, unspecified; Z88.1 Allergy status to other antibiotic agents; Z93.1 Gastrostomy status; Z79.2 Long term (current) use of antibiotics; Z74.01 Bed confinement status
CPT/HCPCS: 36415; 71045; 71250; 74176; 80048; 83605; 83880; 84145; 85007; 85025; 87040; 87081; 96365; 99285; A6449; G0378; J1644; J1953; J2020; J2185; J2270; J2405; J2543; J3490; J7030